=== PATIENT | female | born 1965 | race Caucasian/White ===

== ENCOUNTER → 2020-09-29 | Outpatient (CLI) | payer BC | LOC: HEART 5 10:55 | DX: J44.9 Chronic obstructive pulmonary disease, unspecified (principal) | CPT/HCPCS: 94010 ==

== ENCOUNTER 2021-03-27 21:28 | Emergency (ER) | payer BC ==
[2021-03-27] MEDS ORDERED: MOBIC15 MG PO (23:06)
[2021-03-27] MEDS ORDERED: CYCLOBENZAPRINE10 MG PO (23:06)
== END 2021-03-27 23:20 | disposition home or self-care (01) ==
LOC: ER1 21:28
DX: S29.012A Strain of muscle and tendon of back wall of thorax, initial encounter (principal); M54.10 Radiculopathy, site unspecified; M50.20 Other cervical disc displacement, unspecified cervical region; F17.290 Nicotine dependence, other tobacco product, uncomplicated; Z90.710 Acquired absence of both cervix and uterus; Z79.899 Other long term (current) drug therapy; Z88.8 Allergy status to other drugs, medicaments and biological substances; Z88.0 Allergy status to penicillin; X58.XXXA Exposure to other specified factors, initial encounter
CPT/HCPCS: 72072; 96372; 99283; J1100; J1885